=== PATIENT | female | born 1970 | race Caucasian/White ===

== ENCOUNTER → 2024-03-25 06:20 | Day surgery (SDC) | payer OTHER, SELFPAY | LOC: GI 06:20 | PROVIDERS: ATTENDING PHYSICIAN Internal Medicine Gastroenterology | DX: D49.0 Neoplasm of unspecified behavior of digestive system (principal); D12.2 Benign neoplasm of ascending colon; K57.30 Diverticulosis of large intestine without perforation or abscess without bleeding; R19.5 Other fecal abnormalities; D50.0 Iron deficiency anemia secondary to blood loss (chronic); K64.0 First degree hemorrhoids; K62.89 Other specified diseases of anus and rectum; K22.89 Other specified disease of esophagus; K31.7 Polyp of stomach and duodenum; K31.89 Other diseases of stomach and duodenum | CPT/HCPCS: 45380; 45381; 43239; 88305; 88342 ==

== ENCOUNTER → 2024-03-31 09:43 | Outpatient (REF) | payer OTHER, SELFPAY | LOC: RAD 09:43 | PROVIDERS: ATTENDING PHYSICIAN Internal Medicine Gastroenterology; PRIMARYCARE PHYSICIAN Family Medicine | DX: K62.89 Other specified diseases of anus and rectum (principal) | CPT/HCPCS: 71260; 74177; Q9967 ==

== ENCOUNTER 2024-04-13 06:33 | Day surgery (SDC) | payer OTHER, SELFPAY ==
[2024-04-13 10:00] VITALS: BP 133/76; BMI 24.0
[2024-04-13 12:48] VITALS: BP 115/74
[2024-04-13 13:00] VITALS: BP 121/105
[2024-04-13 13:05] VITALS: BP 104/77
[2024-04-13 13:19] VITALS: BP 133/82
== END 2024-04-13 13:41 | disposition home or self-care (01) ==
LOC: GI 06:33
PROVIDERS: ATTENDING PHYSICIAN Internal Medicine Gastroenterology
DX: K64.0 First degree hemorrhoids (principal); C18.7 Malignant neoplasm of sigmoid colon; D12.6 Benign neoplasm of colon, unspecified; D37.4 Neoplasm of uncertain behavior of colon
CPT/HCPCS: 45338; 88305; 88342

== ENCOUNTER → 2024-05-18 07:41 | Outpatient (REF) | payer OTHER, SELFPAY | LOC: MRI 07:41 | PROVIDERS: ATTENDING PHYSICIAN Obstetrics & Gynecology Gynecologic Oncology; FAMILY PHYSICIAN Family Medicine | DX: D25.9 Leiomyoma of uterus, unspecified (principal); Z12.4 Encounter for screening for malignant neoplasm of cervix; Z15.09 Genetic susceptibility to other malignant neoplasm | CPT/HCPCS: 72197; A9575 ==

== ENCOUNTER 2024-05-21 06:11 | Inpatient (IN) | payer OTHER, SELFPAY ==
--- NOTE | 2024-05-15 11:07 | W.CON.GYNONC ---
Consultation
-
Reason for Consultation: Pre Op evaluation for surgery 05/21/2024
Chief Complaint
-
Fibroids
History of Present Illness
54�year�old�G3�P3�0�0�3�white�female�referred�to�me�by�Dr.�Christopher�Rayray,�for�potential�combined�surgery�to�remove�uterus cervix�possible�oophorectomy�at�the�same�time�as�colectomy.�The�patient�had�her�first�endoscopy�colonoscopy�on�October�24,
2003,�her�ex��has�a�diagnosis�of�stage�III�colon�cancer�and�currently�is�under�treatment�which�made�her�think�that�maybe she�should�consider�colonoscopy.�The�patient�had�had�a�positive�Cologuard�test�in�Michelle�2023�as�well�as�history�of�iron
deficiency�anemia�which�had�been�attributed�to�possible�fibroids.�There�was�a�polypoid�nonobstructing�mass�encountered�and biopsies�were�performed,�revealing�at�least�tubular�adenoma�with�high�grade�dysplasia.�The�patient�subsequently�underwent�a
second�colonoscopy�and�EMR�by�Dr.�Vadim,�which�revealed�invasive�colonic�adenocarcinoma�1.9�cm�grade�2�invading�into submucosa�with�resection�margins�that�were�positive�for�carcinoma,�she�had�loss�of�MSH2�and�MSH6.�Indicating�high�probability�of
Smith�syndrome.�At�this�time�she�has�been�counseled�by�colorectal�surgery�and�is�scheduled�for�surgery�on�Mannie�20. 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
annual�exam�in�Casandra�2024.�Some�options�regarding�management�of�her�abnormal�bleeding�has�been�discussed�with�her�including hysterectomy�and�uterine�artery�embolization�but�she�never�took�any�actions.
Past�gynecologic�history,�menarche�at�age�13,�menses�lasting�3�to�5�days�occurring�every�30�days,�has�had�dysplasia�and�positive HPV�underwent�LEEP�versus�cryotherapy�in�her�20s
Past�obstetrical�history�3�prior�pregnancies�all�delivered�by�C�section�2006,�nd�2009 Past�medical�history�significant�for�anemia,�iron�deficiency,
Past�surgical�history�appendectomy�2021�3�prior�C�sections,�breast�lumpectomy�2021�for�benign�mass�by�Dr.�Abhi Family�history�mother�diagnosed�with�breast�cancer�at�age�45,�she�is�alive,�5�maternal�aunts�with�additional�cancers,�maternal
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
also�mentors�young�athletes�as�a�partner�significant�other�living�together�12�years�not� Previous�Treat
Social�History Patient�denies�ever�using�tobacco. ETOH�Use:�Social�use�of�alcohol. Recreational�Drug�Use:�patient�denies. Current�Occupation:�Teacher\\wrestling coach. Marital�Status:�patient�is�
Medical History
Allergies
Allergies reflect when allergies were last updated in [facility].
No Known Allergies Allergy (Verified 05/14/24 11:33)
Physical Exam
Physical Exam
External normal labia, urethra, anus.
Vagina: Normal mucosa.
Cervix: normal appearance, no discharge.
Uterus: normal size.
Adnexa: No pelvic mass.
RVE: no masses or nodularity
General: In no acute distress. Patient appears stated age. Well developed, well nourished patient.
Neck: Neck is supple. No cervical masses present. Trachea is midline. No thyromegaly.
Lungs: Normal respiratory effort. Clear to auscultation. No abnormal breath sounds or rubs.
Cardiac: normal rate? regular rhythm. S1/S2 without murmurs.
Right Breast: Breast exam deferred.
Right Breast: No masses or dimpling. No nipple discharge.
Left Breast: Breast exam deferred.
Left Breast: No masses or dimpling. No nipple discharge.
Abdomen: Bowel sounds active. Abdomen soft. Non�tender. Non�distended. No mass. No hepatomegaly. No splenomegaly.
Extremities: No edema. No cyanosis.
Hematologic/Lymphatic: No palpable lymphadenopathy.
Musculoskeletal: Strength and tone are normal. No muscle wasting.
Skin:Non�jaundiced. No petechia. No purpura.
Neurologic: Speech is fluent. Normal gait. Normal station. Cranial nerves grossly intact.
Results
-
CT Chest/abd/pel W Iv Cont
PROCEDURE: CT Chest/abd/pel W Iv Cont
CLINICAL INDICATION: Sigmoid colon mass seen on lower endoscopy.
TECHNIQUE: Oral contrast was administered. Axial images were obtained through the chest, abdomen and pelvis following intravenous nonionic contrast administration with coronal and sagittal reformations. Automated dose reduction technique was
utilized.
COMPARISON: None.
FINDINGS:
Chest: The thyroid gland is homogeneous. There is no parenchymal mass or focal consolidation. Some mild nonspecific groundglass opacity seen in the medial right lower lobe, image 45 series 201. There is no significant hilar, mediastinal or axillary
lymphadenopathy. There is no pleural or pericardial effusion. The heart is normal in size in the thoracic aorta normal in caliber. Degenerative changes are seen throughout the thoracic spine.
Abdomen: The liver is mildly enlarged at approximately 19 cm, homogeneous in appearance. There is no focal intrinsic abnormality of the gallbladder, pancreas, spleen or adrenal glands. Renal excretion is symmetric. There is a small simple upper pole
left renal cyst. The abdominal aorta is normal in caliber. There is no retroperitoneal lymphadenopathy. No findings are seen to suggest biliary tract dilatation. There is no focal suspicious osseous lesion. There is no intestinal obstruction or free
air.
Pelvis:Best appreciated on axial image 67 series 401, coronal reformatted image 37 and sagittal reformatted image 46 there is an approximate 2.5 cm soft tissue density in the sigmoid colon most likely representing the patient's known nonobstructing
mass. There is no true pelvis free fluid or significant lymphadenopathy. There is no focal suspicious osseous lesion. An enlarged heterogeneous uterus is seen likely myomatous. No focal intrinsic abnormality of the urinary bladder is noted.
IMPRESSION:
Suspected lesion in the sigmoid colon which by CT measures approximately 2.5 cm likely corresponding with the patient's known biopsied nonobstructing mass.
No suspicious mass or lymphadenopathy otherwise seen throughout the chest, abdomen and pelvis.
Enlarged likely myomatous uterus. Suggest Pelvic Ultrasound for more complete evaluation.
Mild hepatomegaly.
Small simple left renal cyst.
Electronically signed by Michel Bethea MD, 03/31/2024 1:12 PM
Impression / Plan
-
#1 the patient has enlarged uterus according to my personal review of her CT scan, she has had history of menorrhagia, it is unclear
to me as whether she has had prior sampling or dilation and curettage. I attempted an endometrial biopsy today however I was
unable to perform. An MRI of the pelvis will be done with contrast to better evaluate the uterus endometrial cavity as well as ovaries
and tubes. CA125 will be obtained. Pap smear for cytologic evaluation of cervix will be also obtained.
�I am recommending removal of uterus and cervix at the time of her surgery.
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
and ovary. A baseline FSH will be drawn today, I think if she has significant vasomotor symptoms postoperatively estrogen can be
used safely for management of symptoms.
#2 this patient has had remote blood draw at [facility] for a limited panel including BRCA 1 and 2 related to the breast mass
that was removed in 2020. Formal and comprehensive evaluation of Smith syndrome was not performed. Given loss of expression of
MSH2 and MSH6 I am concerned about possibility of large deletion duplication of germline MSH6 and additional investigation may
be indicated. I recommended blood draw for myriad my risk COLARIS panel with reflex to myriad my risk. If this panel is negative
patient should undergo evaluation by genetic counseling subsequent to that
#3 I discussed in detail that I will make myself available in May 21, 2024, plan of surgery is to perform robotic assisted total
laparoscopic hysterectomy bilateral salpingo�oophorectomy, the specimen will be delivered hopefully through the vagina but if not
feasible we will attempt removal through a Pfannenstiel incision, she understands risk of surgery to including infection bleeding
injury to adjacent organs DVT pulmonary embolism and cardiovascular complications. She understands that this portion of the
procedure will be done prior to the colectomy and colectomy specimen may also be removed through the vagina. Questions were
answered.
[2024-05-19 08:54] LABS: Hematocrit 36.5 % (37.0-47.0); Hemoglobin 11.8 g/dL (12.0-16.0); Mean Corp Hgb Conc. 32.3 g/dL (33.0-37.0); Mean Corpuscular Hgb 29.8 pg (27.0-31.0); Mean Corpuscular Volume 92.2 fL (81.0-99.0); Mean Platelet Volume 9.3 fL (7.4-10.4); Platelet Count 382 10^3/uL (130-400); Red Blood Cell Count 3.96 10^6/uL (4.20-5.40); White Blood Cell Count 4.6 10^3/uL (4.8-10.8)
[2024-05-19 09:00] LABS: INR 0.87; PT 12.3 Sec (11.4-14.6)
[2024-05-19 09:01] LABS: APTT 28.1 Sec (23.4-35.0)
[2024-05-19 09:48] LABS: ALT (SGPT) 20 U/L (0-35); AST (SGOT) 22 U/L (14-36); Albumin 4.8 g/dl (3.5-5.0); Alkaline Phosphatase 71 U/L (38-126); Blood Urea Nitrogen 17 mg/dl (7-17); Calcium 9.7 mg/dl (8.4-10.2); Carbon Dioxide 24 mmol/L (22-30); Chloride 104 mmol/L (98-107); Glucose 108 mg/dl (70-99); Potassium 4.7 mmol/L (3.5-5.1); Sodium 139 mmol/L (135-145); Total Bilirubin 0.1 mg/dl (0.2-1.3); Total Protein 7.4 g/dl (6.3-8.2); eGFR > 60.00
[2024-05-19 09:57] LABS: CEA 1.45 ng/ml
[2024-05-19 13:03] VITALS: BMI 26.5
[2024-05-21] VITALS (20 sets, daily range): BP systolic 87–132; BP diastolic 57–100; BMI 26.5
[2024-05-21] MEDS: HEPARIN 5000 UNITS SC (06:42)
[2024-05-21] MEDS: NEURONTIN 300 MG PO (06:45)
[2024-05-21] MEDS: ENTEREG 12 MG PO (06:46)
[2024-05-21] MEDS: TYLENOL 1000 MG PO (06:46)
[2024-05-21] MEDS: CELEBREX 200 MG PO (06:47)
[2024-05-21] MEDS: EMEND 40 MG PO (07:11)
--- NOTE | 2024-05-21 12:01 | W.OR.COLCA ---
Colon Cancer Post Op Note
Immediate Post Op
Primary Surgeon: Waldo Seo MD
Blood Bank Supervisor: GISELLA Sands
Pre-op Diagnosis: Sigmoid colon cancer and uterine fibroids
Post-op Diagnosis: Same
Procedure Performed: Robotic total hysterectomy by Dr. Haas
Robotic sigmoid colon resection with intracorporeal anastomosis by Dr. Seo
Anesthesia Type: GET
Specimen / Cultures: Uterus with fallopian tubes and ovaries
Pelvic washings
Sigmoid colon (suture is proximal)
Apical lymph node
Portion of proximal rectum
Estimated Blood Loss: 65cc
Complications: None
Operative Findings: No evidence of metastatic disease
Fibroid uterus
28mm EEA
Negative leak test
Patient's significant other updated.
Colon Resection
Colon Resection
Operation performed with curative intent: Yes
Tumor Location: Sigmoid Colon
Sigmoid Resection: Inferior Mesenteric
[2024-05-21] MEDS: DILAUDID 0.25 MG IV (12:19)
[2024-05-21] MEDS: DILAUDID 0.5 MG IV ×2 (12:27→12:58)
--- NOTE | 2024-05-21 12:53 | OR.RPT ---
Operative Report
Operative Report
Date of procedure: May 21, 2024
Preoperative diagnosis: Symptomatic leiomyoma, abnormal uterine bleeding, Smith syndrome, colon cancer
Postoperative diagnosis same plus extensive intra-abdominal adhesions and endometriosis
Surgeon: Michel Haas MD
Assist: Anaya Heart PA-C
Procedures:
Robotic assisted total laparoscopic hysterectomy, bilateral salpingo-oophorectomy, washings (uterus >250 gm)
Robotic assisted laparoscopic enterolysis and adhesiolysis
Excision of left paracolic gutter as well as left uterosacral ligament
TAP block
Estimated blood loss 50 cc
Complications: None
Specimen: Uterus and cervix with bilateral tubes and ovaries, pelvic washings, right and left paracolic gutter, left uterosacral ligament implant
Anesthesia: General ET
Indication for surgery: This is a 54-year-old white female who has recent diagnosis of grade 2 adenocarcinoma of sigmoid colon she is brought to the operating room for sigmoid resection. On her molecular analysis of sigmoid colon there was absence
of PMS2 and MSH6 high risk for Smith syndrome. She has a large uterus approximately 14 weeks, with associated menorrhagia and abnormal bleeding, decision has been made to remove the uterus and cervix with bilateral tubes and ovaries as part of risk
reduction for Smith syndrome as well as addressing her symptoms of abnormal uterine bleeding.
Procedure in detail: This patient was brought to the operating room and placed in supine position, general anesthesia was administered, she was intubated without any difficulty, she was placed in lithotomy position using yellowfin stirrups and
prepped on the abdomen perineum and vagina and upper thighs. Appropriate IVs were placed and her arms were wrapped in foam and placed in a protective fashion along the patient's side. The patient was draped. Timeout procedure was carried out she
received the appropriate antibiotics and DVT prophylaxis. I went ahead and placed a Lema catheter for drainage of the bladder under sterile conditions. The cervix appears to be anteriorly displaced and retracted up, the cervical canal was
gradually dilated, the uterus sounded to 12 cm, uterine manipulator firer tunnel kiln type with 3.5 cm SAM ring was placed in the uterine cavity and vaginal cuff occluder was insufflated. We turned our attention to the abdomen Veress needle was inserted
just below left subcostal margin into the peritoneal cavity and insufflation with CO2 gas was performed up to pressure of 15 mmHg. 8 mm robotic ports were placed along the mid epigastric level 25 cm cephalad to symphysis pubis right and left upper
abdomen as well as right and left lateral abdomen. Next tap block was performed with ropivacaine injecting approximately 2 fingerbreadths below the lateral subcostal margin between muscle and the peritoneum as well as right and left mid lateral
abdomen. The patient was placed in 28 degree Trendelenburg. Upper abdomen was examined, bilateral diaphragms were normal liver right and left lobes were normal. Robotic system was docked. We collected washings in the pelvis and submitted it for
cytology evaluation. Extensive omental adhesions were noted to the anterior abdominal wall which was sharply taken down additional omental adhesions to the posterior leiomyoma as well as anterior cul-de-sac were taken down sharply. Once these were
released we noted that there were thick fibrotic adhesions between the uterus and anterior abdominal wall. Right and left round ligaments were identified in the midst of these adhesions and they were sealed and divided anterior and posterior leaves
of the broad ligament were dissected open, both infundibulopelvic ligaments were isolated and from adjacent structures. Both ureters were visualized in the retroperitoneum and they were vermiculating. An avascular window was developed
between both ovaries and ureter and this was opened IP ligaments were sealed 3 times and divided tubes and ovaries were left attached to the uterus. Adhesions of the anterior abdominal wall to the uterus were taken down sharply, we opened the
vesicouterine space laterally both on right and left sides entering the space between the cervix and bladder and then we were able to come up and take down the remainder of the adhesions between the dome of the bladder and the lower uterine segment
carefully until it was completely detached. Next uterine arteries were skeletonized bilaterally. They were sealed 3 times and divided there was implants of endometriosis along the left paracolic gutter which was removed during the mobilization of
IP ligament. There was an implant of endometriosis approximately 1 cm involving left uterosacral ligament which was completely excised and submitted to pathology. Both uterine artery pedicles were sealed 3 times and divided circumferential
incision was made over the SAM ring, we additionally sealed and divided the uterosacral ligament and residual parametria until the specimen was completely free. The uterine manipulator was removed out of the uterus. We went ahead and placed the
uterus and the endoscopic bag which had been introduced through the vagina and the specimen including uterus and cervix was and tubes and ovaries were removed through the vagina. The vaginal cuff was left open initially until the colectomy was
completed. Once this was completed the colon specimen was removed through the vagina, the anvil for EEA stapler passed into the abdomen through this opening. Next I closed the vaginal cuff by using 0 Vicryl suture ligature in a [id number]
fashion incorporating uterosacral ligaments on both right and left sides. V-Loc suture was used to close the vaginal cuff starting from right to the left side and coming back to the left side and a second layer. Excellent hemostasis was achieved.
We backfilled the bladder with 250 cc normal saline and there was no evidence of thinning of the bladder wall or leakage. The remainder of the procedures will be dictated by Dr. Waldo Seo. I left the operating room after completion of the
above portion of the procedure counts of laps instruments and needle was correct x 2. I was present and scrubbed for entire procedure as dictated above
Disposition: To PACU alert awake extubated
[2024-05-21] MEDS: NORMOSOL-R/PLASMALYTE-A 1000 IV ×2 (13:38→22:25)
--- NOTE | 2024-05-21 15:02 | PTCARENOTE ---
Addendum 1212 Upon arrival patient verbalizing urethral pain #10/10 withering in bed. Patient reports 'feels like I have to pee', 'the catheter is kinked'. Medicated for pain as ordered. Tristan draining clear yellow urine, irrigated with 10ML of NSS,
immediate return clear yellow urine. Aprox 1230, tiger text to Dr Haas to evaluate patient. Per Dr Haas tristan discontinued as ordered without difficulty. Pain slightly improved, reports 'burning'.
--- NOTE | 2024-05-21 16:28 | PTCARENOTE ---
Pt arrived to [facility] from PACU s/p aries sigmoid colon resection, BSO and hysterectomy. 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 Pt states no pain at this time. Oriented to call berrios and room, bed locked adn in lowest position,
call berrios within reach.
[2024-05-21] MEDS: TYLENOL 650 MG PO ×2 (16:42→20:00)
[2024-05-21] MEDS: TORADOL 15 MG IV (20:00)
[2024-05-22] MEDS: TYLENOL PO (00:20)
[2024-05-22] MEDS: TORADOL 15 MG IV ×4 (01:05→19:45)
[2024-05-22 03:27] VITALS: BP 124/75
[2024-05-22] MEDS: TYLENOL 650 MG PO ×5 (04:08→19:45)
[2024-05-22 05:35] LABS: % Basophils 0.2 % (0-2); % Immature Granulocytes 0.5 % (0-0.5); % Lymphocytes 12.7 % (20.5-51.1); % Monocytes 12.7 % (1.7-9.3); % Neutrophils 73.9 % (42.2-75.2); Absolute Immature Granulocytes 0.1 10^3/uL (0-0.05); Absolute Lymphocytes 1.4 10^3/uL (1.2-3.4); Absolute Monocytes 1.4 10^3/uL (0.1-0.6); Hematocrit 30.6 % (37.0-47.0); Hemoglobin 10.3 g/dL (12.0-16.0); Mean Corp Hgb Conc. 33.7 g/dL (33.0-37.0); Mean Corpuscular Hgb 30.2 pg (27.0-31.0); Mean Corpuscular Volume 89.7 fL (81.0-99.0); Mean Platelet Volume 9.2 fL (7.4-10.4); Nucleated Red Blood Cells % 0 %; Platelet Count 336 10^3/uL (130-400); Red Blood Cell Count 3.41 10^6/uL (4.20-5.40); Red Cell Dist. Width 13.2 % (11.5-14.5); White Blood Cell Count 10.8 10^3/uL (4.8-10.8)
[2024-05-22 05:59] LABS: Blood Urea Nitrogen 8 mg/dl (7-17); Calcium 8.7 mg/dl (8.4-10.2); Carbon Dioxide 26 mmol/L (22-30); Chloride 104 mmol/L (98-107); Estimated Creatinine Clearance 87 ml/min; Glucose 110 mg/dl (70-99); Potassium 4.5 mmol/L (3.5-5.1); Sodium 136 mmol/L (135-145); eGFR > 60.00
[2024-05-22 06:00] VITALS: BMI 26.9
[2024-05-22 07:20] VITALS: BP 128/76
[2024-05-22] MEDS: ENTEREG 12 MG PO ×2 (07:42→19:44)
[2024-05-22] MEDS: NORMOSOL-R/PLASMALYTE-A IV (09:28)
--- NOTE | 2024-05-22 09:36 | W.PN.GS2 ---
Addendum entered and electronically signed by Hugh Gresham MD 05/22/24 09:49:
Patient seen and examined. Agree with assessment plan as documented below.
Original Note:
Today's Communication / Plan
-
FLD
Pain control
Assessment / Plan
-
54 yo female with h/o uterine fibroids and sigmoid colon cancer now POD #1 robotic total hysterectomy (Dr. Haas) and Robotic sigmoid resection (Dr. Seo)
AFVSS
Tolerated the procedure well
No leukocytosis
Mild acute anemia secondary to expected operative blood losses and hemodilution
Passing flatus, but still with quite a bit of cramping abdominal pain
--Advance to FLD
--Encouraged use of prn analgesics, continue tylenol and toradol scheduled
--Continue Entereg
--d/c IVF
--OOB/Ambulate
--Lovenox 40mg SQ with SCDS for VTE ppx
Subjective Data
-
Date of Service: May 22, 2024
Patient seen and examined at bedside with Dr. Gresham. Denies n/v. Cramping abdominal pain which is relieved with ambulation and passage of flatus. No BM as of yet.
Objective Data
-
Intake and Output
05/21/24 05/22/24 05/23/24
06:59 06:59 06:59
Intake Total 2830 / 2830
Output Total 1650 / 1650
Balance 1180 / 1180
Intake:
Oral fluids 900 / 900
IV fluids (Total) 193 / 193
Normosol 730 / 730
Output:
Urine, Lema 1450 / 1450
Urine, Voided 200 / 200
Other:
Number of approximated SMALL 1
amounts of urine
Number of approximated MODERATE 2
amounts of urine
Number of approximated LARGE 3
amounts of urine
Vital Signs
Temp Pulse Resp BP Pulse Ox
99.1 F 83 18 128/76 97
05/22/24 07:20 05/22/24 07:20 05/22/24 07:20 05/22/24 07:20 05/22/24 07:20
Lab Results
05/22/24 04:53
05/22/24 04:53
Calcium 8.7 mg/dl (8.4-10.2) 05/22/24 04:53
Total Bilirubin 0.1 mg/dl (0.2-1.3) L 05/19/24 06:57
AST 22 U/L (14-36) 05/19/24 06:57
ALT 20 U/L (0-35) 05/19/24 06:57
Alkaline Phosphatase 71 U/L (38-126) 05/19/24 06:57
Total Protein 7.4 g/dl (6.3-8.2) 05/19/24 06:57
Albumin 4.8 g/dl (3.5-5.0) 05/19/24 06:57
Physical Exam
-
NAD
ABD softly distended, generalized tenderness, ACID EXTRACTOR
Incisions with intact glue, no erythema
--- NOTE | 2024-05-22 09:54 | W.PN.GYNONC ---
Today's Communication
-
increase ambulation, regular po intake
Impression / Plan
-
POD1
she is doing very well
I explained her surgical findings, reviewed procedures performed
discussed recommendations to ambulate 3-4 times a day
recommend taking Tylenol and ibuprofen ATC, limit or avoid narcotics
she will likely have vasomotor symptoms related to menopause and i will address in office in 2-3 weeks. i need to review path to ensure there is no contraindications.
Michel Haas MD
Research Lab Assistant Oncology
[phone]
Subjective / Interval History
-
POD 1 s/p robotic TLH BSO, BRAYAN, and LAR w reanastomosis
she slept poorly, voided ok, but has some urgency feelings
she is with minimal pain, ambulated several times, passing flatus
Objective Data
-
Lab Results:
05/22/24 04:53
05/22/24 04:53
Physical Exam
Vital Signs / I&O
Vitals
Temp Pulse Resp BP Pulse Ox
99.1 F 83 18 128/76 97
05/22/24 07:20 05/22/24 07:20 05/22/24 07:20 05/22/24 07:20 05/22/24 07:20
I&O
05/20/24 05/21/24 05/22/24 05/23/24
06:59 06:59 06:59 06:59
Intake Total 2830 / 2830
Output Total 1650 / 1650
Balance 1180 / 1180
Physical Exam
General: No Apparent Distress and Comfortable
Respiratory: Clear and Non Labored Respirations
Cardiac: S1/S2 and Regular Rhythm
GI: Soft and Non Tender
--- NOTE | 2024-05-22 10:53 | CM ---
Patient seen at bedside. Patient states she has 3 teenagers and her disabled mother living with her. Patient states it is a 2 story home with no DME. Patient PCP is Dr. Heaven clinton and she uses [facility] in [place]. Patient states she is independent
of ADL's and IADL's prior to admission and her significant other will be around to assist. Patient does not anticipate any discharge needs at this time. CM will continue to follow for discharge planning needs.
Plan; home with no needs vs home with VN watch for needs.
[2024-05-22 11:14] VITALS: BP 138/74
[2024-05-22 15:10] VITALS: BP 135/76
[2024-05-22 23:05] VITALS: BP 116/69
[2024-05-23] MEDS: TYLENOL PO ×2 (01:17→05:15)
[2024-05-23] MEDS: TORADOL 15 MG IV ×2 (01:31→08:37)
[2024-05-23 05:51] VITALS: BMI 25.6
[2024-05-23 06:35] LABS: Hematocrit 32.5 % (37.0-47.0); Hemoglobin 10.7 g/dL (12.0-16.0); Mean Corp Hgb Conc. 32.9 g/dL (33.0-37.0); Mean Platelet Volume 9.2 fL (7.4-10.4); Platelet Count 334 10^3/uL (130-400); Red Blood Cell Count 3.57 10^6/uL (4.20-5.40); Red Cell Dist. Width 13.2 % (11.5-14.5); White Blood Cell Count 7.1 10^3/uL (4.8-10.8)
[2024-05-23 06:56] LABS: Blood Urea Nitrogen 7 mg/dl (7-17); Calcium 9.1 mg/dl (8.4-10.2); Carbon Dioxide 28 mmol/L (22-30); Chloride 104 mmol/L (98-107); Estimated Creatinine Clearance 87 ml/min; Glucose 100 mg/dl (70-99); Potassium 4.9 mmol/L (3.5-5.1); Sodium 138 mmol/L (135-145); eGFR > 60.00
[2024-05-23 07:45] VITALS: BP 129/82
[2024-05-23] MEDS: TYLENOL 650 MG PO ×2 (08:37→13:22)
[2024-05-23] MEDS: ENTEREG 12 MG PO (08:38)
--- NOTE | 2024-05-23 08:44 | W.PN.GS2 ---
Today's Communication / Plan
-
--DC today
Assessment / Plan
-
54 yo female with h/o uterine fibroids and sigmoid colon cancer now POD #2 robotic total hysterectomy (Dr. Haas) and Robotic sigmoid resection (Dr. Seo)
AFVSS
Tolerated the procedure well
No leukocytosis
Mild acute anemia secondary to expected operative blood losses and hemodilution
Passing flatus, but still with quite a bit of cramping abdominal pain
--LRD
--Pain control: Tylenol, Toradol, Tramadol
--Continue Entereg
--DC IVF
--OOB/Ambulate
--Lovenox 40mg SQ with SCDS for VTE ppx
--DC today
Subjective Data
-
Date of Service: May 23, 2024
Feels improved. Less discomfort compared to yesterday. Does continue to report some upper abdominal and chest pressure. Passing flatus and some loose stools. Ambulating, voiding.
Objective Data
-
Intake and Output
05/22/24 05/23/24 05/24/24
06:59 06:59 06:59
Intake Total 2830 / 2830 1020 / 1020
Output Total 1650 / 1650
Balance 1180 / 1180 1020 / 1020
Intake:
Oral fluids 900 / 900 1020 / 1020
IV fluids (Total) 193 / 1929
Normosol 730 / 730
Output:
Urine, Lema 1450 / 1450
Urine, Voided 200 / 200
Other:
Number of approximated SMALL 1
amounts of urine
Number of approximated MODERATE 2 2
amounts of urine
Number of approximated LARGE 3
amounts of urine
Vital Signs
Temp Pulse Resp BP Pulse Ox
98.5 F 69 16 116/69 98
05/22/24 23:05 05/22/24 23:05 05/22/24 23:05 05/22/24 23:05 05/22/24 23:05
Lab Results
05/23/24 05:58
05/23/24 05:57
Calcium 9.1 mg/dl (8.4-10.2) 05/23/24 05:57
Total Bilirubin 0.1 mg/dl (0.2-1.3) L 05/19/24 06:57
AST 22 U/L (14-36) 05/19/24 06:57
ALT 20 U/L (0-35) 05/19/24 06:57
Alkaline Phosphatase 71 U/L (38-126) 05/19/24 06:57
Total Protein 7.4 g/dl (6.3-8.2) 05/19/24 06:57
Albumin 4.8 g/dl (3.5-5.0) 05/19/24 06:57
Physical Exam
-
Gen: NAD
Abd: soft, minimal tenderness (improved), ND, non-peritoneal, incisions c/d/i - no erythema, ecchymosis or drainage
--- NOTE | 2024-05-23 10:48 | CM ---
Patient seen at bedside. Patient stated that she is eager to go home and does not anticipate any discharge planning needs. CM will continue to follow for discharge planning needs.
Plan; home with no needs anticipated.
--- NOTE | 2024-05-23 11:56 | W.PN.GYNONC ---
Today's Communication
-
-
Impression / Plan
-
POD1
she is doing very well
I explained her surgical findings, reviewed procedures performed
discussed recommendations to ambulate 3-4 times a day
recommend taking Tylenol and ibuprofen ATC, limit or avoid narcotics
she will likely have vasomotor symptoms related to menopause and i will address in office in 2-3 weeks. i need to review path to ensure there is no contraindications.
Michel Haas MD
Employee Operations Examiner Oncology
[phone]
POD #2
recovering well
questions answered
will continue to ambulate and advance diet per colorectal,
hopes to be discharge later today
will follow up with us in 2 to 3 weeks
Subjective / Interval History
-
POD 2- Feeling better, still having a lot of gas pain is improving and able to have a BM this morning. She has been up and moving to help the the gas pain. Denies any vaginal bleeding
Objective Data
-
Lab Results:
05/23/24 05:58
05/23/24 05:57
Physical Exam
Vital Signs / I&O
Vitals
Temp Pulse Resp BP Pulse Ox
98.5 F 69 16 116/69 98
05/22/24 23:05 05/22/24 23:05 05/22/24 23:05 05/22/24 23:05 05/22/24 23:05
I&O
05/21/24 05/22/24 05/23/24 05/24/24
06:59 06:59 06:59 06:59
Intake Total 2830 / 2830 1020 / 1020
Output Total 1650 / 1650
Balance 1180 / 1180 1020 / 1020
Data Reviewed
-
Lab Data: Labs Reviewed
[2024-05-23 13:37] VITALS: BP 129/89
--- NOTE | 2024-05-23 16:47 | W.DCSUMMARY ---
Discharge Summary
Discharge Data
Date of Admission: 05/21/24
Date of Discharge: 05/23/24
-
Pending Results: No
Hospital Course
Ms Kc is a 54 yo female with history of uterine fibroids and sigmoid cancer who presented for robotic total hysterectomy (Dr. Haas) and robotic sigmoid resection (Dr. Seo) in management. She tolerated the joint surgery well. Diet was able to
be advanced and well tolerated prior to discharge with evidence of good bowel recovery. She had adequate pain control as well. Outpatient follow up is planned in the coming weeks with surgery teams with operative pathology still pending.
Discharge Plan
-
Patient Disposition: Home (Routine Discharge)
Discharge Diagnosis/Procedures: Robotic total hysterectomy and sigmoidectomy
Condition: Good
Diet: Low Fiber
Activity: No strenuous activity
Additional Activity: Do not lift over 10lbs (gallon of milk)
Driving Restrictions: Wait unitl comfortable twisting, off narcotics
Bathing Restrictions: OK to Shower
Wound Care: Allow the glue over your incisions to flake off on its own in 2-3 weeks. Avoid scrubbing or picking off the glue
Activity Restrictions/Additional Instructions:
Call your surgeon if you have nausea with vomiting, fever >100.5, or worsening pain
Referrals:
Danilo Seo MD [Active] - in two to four weeks
Michel Haas MD [Active] - in two to three weeks
Tammy Viera DO [Family Provider] -
Prescriptions:
New
acetaminophen [acetaminophen] 325 mg tablet
650 mg PO Q4HPRN PRN (Reason: mild pain) Qty: 1 0RF
ibuprofen 200 mg tablet
400 - 600 mg PO Q6HPRN PRN (Reason: moderate pain) Qty: 1 0RF
tramadol 50 mg tablet
25 - 50 mg PO Q6HPRN PRN (Reason: severe pain/breakthrough pain) Qty: 10 0RF
Discontinued
Sutab 1.479-0.188- 0.225 gram Tablet
0 tab PO PER PKG DIR
Patient Comments:
Prep started 05/20/24 at 1600 and ended at 2100 05/20/24
neomycin 500 mg Tablet
1 g PO TID
Rx Instructions:
took on 05/20/24 at 1400, 1500 and 2200
metronidazole 500 mg Tablet
500 mg PO TID
Rx Instructions:
took at 1400, 1500 and 2200
Discharge Orders:
Discharge Patient (As Directed); Ordered 05/23/24
Ordered By: Kaya Ramirez
Discharge Date and Time
Discharge Date/Time: 05/23/24 13:43
Print Language: [place]
== END 2024-05-23 13:43 | disposition home or self-care (01) | DRG 330 ==
LOC: 2 SOUTH 06:11
PROVIDERS: Registered Nurse; ADMITTING PHYSICIAN Surgery; FAMILY PHYSICIAN Family Medicine; OTHER PHYSICIAN Obstetrics & Gynecology Gynecologic Oncology
PROC: 0DBP4ZZ Excision of Rectum, Percutaneous Endoscopic Approach (ICD-10-PCS; 2024-05-21)
PROC: 0UT74ZZ Resection of Bilateral Fallopian Tubes, Percutaneous Endoscopic Approach (ICD-10-PCS; 2024-05-21)
PROC: 07BB4ZX Excision of Mesenteric Lymphatic, Percutaneous Endoscopic Approach, Diagnostic (ICD-10-PCS; 2024-05-21)
PROC: 0WBN4ZZ Excision of Female Perineum, Percutaneous Endoscopic Approach (ICD-10-PCS; 2024-05-21)
PROC: 8E0W4CZ Robotic Assisted Procedure of Trunk Region, Percutaneous Endoscopic Approach (ICD-10-PCS; 2024-05-21)
PROC: 0UB44ZZ Excision of Uterine Supporting Structure, Percutaneous Endoscopic Approach (ICD-10-PCS; 2024-05-21)
PROC: 0UT24ZZ Resection of Bilateral Ovaries, Percutaneous Endoscopic Approach (ICD-10-PCS; 2024-05-21)
PROC: 0DTN4ZZ Resection of Sigmoid Colon, Percutaneous Endoscopic Approach (ICD-10-PCS; 2024-05-21)
PROC: 0DJD8ZZ Inspection of Lower Intestinal Tract, Via Natural or Artificial Opening Endoscopic (ICD-10-PCS; 2024-05-21)
PROC: 0UT94ZZ Resection of Uterus, Percutaneous Endoscopic Approach (ICD-10-PCS; 2024-05-21)
DX: C18.7 Malignant neoplasm of sigmoid colon (principal); D62 Acute posthemorrhagic anemia; Q43.8 Other specified congenital malformations of intestine; D25.9 Leiomyoma of uterus, unspecified; K66.0 Peritoneal adhesions (postprocedural) (postinfection); N92.0 Excessive and frequent menstruation with regular cycle; N80.3C2 Endometriosis of the left uterosacral ligament, unspecified depth; N80.399 Endometriosis of the pelvic peritoneum, other specified sites, unspecified depth
CPT/HCPCS: 88305; 88307; 88309; 36415; 80048; 80053; 82378; 83036; 85025; 85027; 85610; 85730; 86850; 86900; 86901; 88112; 93005; J1335

== ENCOUNTER → 2025-04-27 07:09 | Outpatient (REF) | payer OTHER, SELFPAY | LOC: RAD 07:09 | PROVIDERS: ATTENDING PHYSICIAN Internal Medicine Gastroenterology; FAMILY PHYSICIAN Family Medicine | DX: C18.7 Malignant neoplasm of sigmoid colon (principal) | CPT/HCPCS: 71260; 74177; Q9967 ==